=== PATIENT | female | born 1965 | race African-American/Black ===

== ENCOUNTER 2018-07-31 17:27 | Inpatient (IN) | payer MEDICAID ==
[~2018-07-31] VITALS: Ht 162.6 cm; Wt 72.6 kg
[2018-07-31] MEDS ORDERED: VANCOMYCIN 1 G PREMIX 200 ML IV ONE (18:45)
[2018-07-31] MEDS ORDERED: SODIUM CHLORIDE 0.9% 1000ML BAG (SEPSIS BOLUS) IV ONE (18:45)
[2018-07-31] MEDS ORDERED: PIPERACILLIN/TAZ 3.375G PREMIX 50 ML IV ONE (18:45)
[2018-07-31 19:10] LABS: CHLORIDE 106 mEq/L (98-107); INR 1.1; PARTIAL THROMBOPLASTIN TIME 26.6 sec (23.4-31.0); PROTHROMBIN TIME 10.6 sec (9.1-11.1)
[2018-07-31 19:13] LABS: BASOPHILS % 0.7 % (0.0-2.0); EOSINOPHILS % 0.2 % (0.0-5.0); HEMATOCRIT. 38.3 % (36.0-48.0); HEMOGLOBIN. 12.5 g/dL (12.0-16.0); LYMPHOCYTES % 17.4 % (20.0-50.0); MEAN CORPUSCULAR HEMOGLOBIN 31.2 pg (28.0-32.0); MEAN CORPUSCULAR VOLUME 95.3 fL (81.0-99.0); MEAN PLATELET VOLUME 8.6 fl (7.4-10.4); MONOCYTES % 8.5 % (2.0-8.0); NEUTROPHILS % 73.2 % (40.0-76.0); PLATELET 190 x1000/uL (130-400); RED BLOOD CELL COUNT 4.02 mill/uL (4.2-5.4); RED CELL DISTRIBUTION WIDTH 13.7 % (11.6-14.6)
[2018-07-31 19:15] LABS: ETHANOL BLOOD < 10 mg/dL
[2018-07-31 19:54] LABS: CLARITY URINE CLOUDY (CLEAR); COLOR URINE YELLOW (YELLOW); KETONES URINE TRACE (NEGATIVE); LEUKOCYTE ESTERASE URINE TRACE (NEGATIVE); NITRITE URINE NEGATIVE (NEGATIVE); OCCULT BLOOD URINE NEGATIVE (NEGATIVE); PH URINE 5.5 (4.5-8.0); PROTEIN URINE NEGATIVE (NEGATIVE); SPECIFIC GRAVITY URINE 1.011 (1.005-1.030); UROBILINOGEN URINE 0.2 E.U./dL (0.2-1.0)
[2018-07-31 20:14] LABS: *AMPHETAMINES SCREEN URINE NEGATIVE (NEGATIVE); *BARBITURATES SCREEN URINE NEGATIVE (NEGATIVE); *BENZODIAZEPINES SCREEN URINE NEGATIVE (NEGATIVE); *COCAINE SCREEN URINE NEGATIVE (NEGATIVE); CANNABINOID URINE SCREEN NEGATIVE (NEGATIVE); METHADONE URINE SCREEN NEGATIVE (NEGATIVE); OPIATES URINE SCREEN NEGATIVE (NEGATIVE)
[2018-07-31 20:15] LABS: PHENCYCLIDINE URINE SCREEN NEGATIVE (NEGATIVE)
[2018-07-31] MEDS ORDERED: MORPHINE SULFATE 4 MG/ML CPJ (NOT FOR IM USE) IV STA (21:49)
[2018-07-31] MEDS ORDERED: ONDANSETRON HCL 4MG/2ML INJ IV STA (21:49)
[2018-07-31] MEDS ORDERED: ASPIRIN 81MG TABLET PO ONE (22:00)
[2018-08-01] VITALS (7 sets, daily range): BP systolic 87–142; BP diastolic 50–82
[2018-08-01] MEDS: HYDROMORPHONE HCL/PF 2MG/ML CPJ IV PRN (06:34)
[2018-08-01] MEDS ORDERED: CLINDAMYCIN 600 MG in DEXTROSE 5% WATER 50 ML IV SCH (08:00)
[2018-08-01] MEDS: DOCUSATE SODIUM 250MG CAPSULE PO PRN ×2 (08:57→20:49)
[2018-08-01] MEDS ORDERED: LORAZEPAM 2MG/ML CPJ IV NR (10:30)
[2018-08-01] MEDS ORDERED: ONDANSETRON HCL 4MG/2ML INJ IV PRN (17:45)
[2018-08-01] MEDS: CLINDAMYCIN 900 MG in DEXTROSE 5% WATER 50 ML IV SCH (20:50)
[2018-08-02] MEDS: CLINDAMYCIN 900 MG in DEXTROSE 5% WATER 50 ML IV SCH ×2 (03:35→14:39)
[2018-08-02 04:00] VITALS: BP_SYST 100; BP_SYST 106; BP_DIAS 56; BP_DIAS 64
[2018-08-02 05:59] LABS: BASOPHILS % 0.7 % (0.0-2.0); EOSINOPHILS % 2.2 % (0.0-5.0); HEMATOCRIT. 35.1 % (36.0-48.0); LYMPHOCYTES % 45.9 % (20.0-50.0); MEAN CORPUSCULAR HEMOGLOBIN 32.2 pg (28.0-32.0); MEAN CORPUSCULAR VOLUME 94.5 fL (81.0-99.0); MEAN PLATELET VOLUME 8.4 fl (7.4-10.4); MONOCYTES % 7.5 % (2.0-8.0); NEUTROPHILS % 43.7 % (40.0-76.0); PLATELET 204 x1000/uL (130-400); RED BLOOD CELL COUNT 3.71 mill/uL (4.2-5.4); RED CELL DISTRIBUTION WIDTH 13.7 % (11.6-14.6)
[2018-08-02 06:35] LABS: CHLORIDE 106 mEq/L (98-107)
[2018-08-02 08:00] VITALS: BP_SYST 116; BP_SYST 95; BP_DIAS 54; BP_DIAS 83
[2018-08-02 08:15] VITALS: BP 116/83
[2018-08-02] MEDS ORDERED: LIDOCAINE HCL 1% 20ML VIAL (Pyxis) INJ INFIL NR (11:00)
[2018-08-02] MEDS ORDERED: LIDOCAINE HCL/PF 1% 10 MG/ML 30ML VIAL INFIL NR (11:00)
[2018-08-02 12:00] VITALS: BP 134/70
[2018-08-02] MEDS: HYDROMORPHONE HCL/PF 2MG/ML CPJ IV PRN (15:20)
[2018-08-02 15:49] VITALS: BP 128/76
[2018-08-02 16:21] VITALS: BP 128/76
== END 2018-08-02 20:20 | disposition home or self-care (01) | DRG 364 ==
LOC: ER 17:27 → 7WST 21:56 → ENRESERV 08-01 02:34
PROVIDERS: ADMIT Internal Medicine; ATTEND Internal Medicine
PROC: 0JDR0ZZ Extraction of Left Foot Subcutaneous Tissue and Fascia, Open Approach (ICD-10-PCS; principal; 2018-08-02)
DX: L03.032 Cellulitis of left toe (principal); E87.1 Hypo-osmolality and hyponatremia; G90.8 Other disorders of autonomic nervous system; L97.529 Non-pressure chronic ulcer of other part of left foot with unspecified severity; W18.39XA Other fall on same level, initial encounter; L97.519 Non-pressure chronic ulcer of other part of right foot with unspecified severity; M20.42 Other hammer toe(s) (acquired), left foot; M20.41 Other hammer toe(s) (acquired), right foot; Z87.891 Personal history of nicotine dependence; Y93.89 Activity, other specified; Y92.89 Other specified places as the place of occurrence of the external cause; Y99.8 Other external cause status
CPT/HCPCS: 36415; 70551; 71045; 73560; 80048; 80305; 80307; 80329; 82962; 83605; 84145; 84443; 84484; 87070; 87075; 87077; 93005; 93306; 93970; 96365; 96366; 96367; 96375; 97162; 97530; 99285; G0482; J1170; J2060; J2270; J2405; J2543; J3370; J3490; J7030; J7050; J7060